=== PATIENT | male | born 1970 | race African-American/Black ===

== ENCOUNTER 2020-05-04 15:40 | Emergency (ER) | payer OTHER ==
[~2020-05-04] VITALS: Ht 172.7 cm; Wt 70.3 kg
[2020-05-04 15:47] VITALS: BP 145/73
--- NOTE | 2020-05-04 16:14 | NUR ---
50 Y/O MALE BIB SELF C/O EPIGASTRIC PAIN X2 DAYS, PATIENT DESCRIBES PAIN BURNING AND PRESSURE 7/10, NON RADIATING. DENIES ANY N/V/D, FEVER. AMBULATORY WITH STEADY GAIT. GCS 15. PATIENT STATES PAIN HAS BEEN GOING ON SINCE 2019 INTERMITTENTLY. WAS REFFERED TO ER BY URGENT CARE FOR ABNORMAL EKG PMH: DIABETES NKDA
[2020-05-04] MEDS ORDERED: LIDOCAINE VISCOUS 2% 20 ML UDC ONE (16:15)
[2020-05-04] MEDS ORDERED: ASPIRIN 325 MG TAB PO ONE (16:15)
[2020-05-04] MEDS ORDERED: ALUMINUM HYD/MAG/SIMETHICONE 30 ML UDC ONE (16:15)
[2020-05-04] MEDS ORDERED: DICYCLOMINE HCL LIQUID 20 MG, ALUMINUM HYD/MAG/SIMETHICONE 30 ML, LIDOCAINE VISCOUS 2% ... PO ONE ×3 (16:15)
[2020-05-04] MEDS ORDERED: DICYCLOMINE HCL LIQUID 10 MG/5 ML UDC ONE (16:16)
[2020-05-04 16:31] LABS: BASOPHILS % (AUTO) 0.6 % (0.0-2.0); EOSINOPHILS # (AUTO) 0.1 K/uL (0-0.4); EOSINOPHILS % (AUTO) 1.6 % (0.0-4.0); HEMATOCRIT 41.9 % (36-52); LYMPHOCYTES % (AUTO) 37.1 % (20.5-51.1); MEAN CORPUSCULAR HEMOGLOBIN 29 pg (27-31); MEAN CORPUSCULAR HGB CONC 34 g/dL (33-37); MEAN CORPUSCULAR VOLUME 86.1 fL (80-94); MONOCYTES # (AUTO) 0.6 K/uL (0.8-1.0); MONOCYTES % (AUTO) 7.1 % (1.7-9.3); NEUTROPHILS # (AUTO) 4.3 K/uL (1.8-7.7); NEUTROPHILS % (AUTO) 53.6 % (42.2-75.2); PLATELET COUNT (AUTO) 199 K/uL (140-450); RED BLOOD CELL COUNT(AUTO) 4.86 MIL/uL (4.20-6.10); RED CELL DISTRIBUTION WIDTH 13.6 % (11.6-13.7)
[2020-05-04 16:49] LABS: CARBON DIOXIDE 26.2 mmol/L (21-32); CREATININE 1.1 mg/dL (0.6-1.3); POTASSIUM 4.2 mmol/L (3.5-5.1); TOTAL BILIRUBIN 0.2 mg/dL (0.0-1.0)
--- NOTE | 2020-05-04 17:26 | NUR ---
PATIENT STATES THAT PAIN IS STILL PRESENT AT THIS TIME. VSS.
[2020-05-04] MEDS ORDERED: fentaNYL citrate 0.05 MG/ML VIAL IM ONE (17:35)
--- NOTE | 2020-05-04 18:14 | NUR ---
PT BACK FROM CT SCAN
[2020-05-04] MEDS ORDERED: DOCU-299 PO (19:18)
[2020-05-04] MEDS ORDERED: BEN10 PO (19:18)
--- NOTE | 2020-05-04 19:20 | NUR ---
REPORT RECEIVED FROM MALLY SANCHEZ FOR CONTINUITY OF CARE
[2020-05-04 19:39] VITALS: BP 140/71
--- NOTE | 2020-05-04 19:39 | NUR ---
Patient discharged with v/s stable. Written and verbal after care instructions given and explained. Patient alert, oriented and verbalized understanding of instructions. Ambulatory with steady gait. All questions addressed prior to discharge. ID band removed. Patient advised to follow up with PMD. Rx of BENTYL AND COLACE given. Patient educated on indication of medication including possible reaction and side effects. Opportunity to ask questions provided and answered.
== END 2020-05-04 19:39 | disposition home or self-care (01) ==
LOC: MED 15:40
DX: R10.10 Upper abdominal pain, unspecified (principal); E11.9 Type 2 diabetes mellitus without complications; Z79.899 Other long term (current) drug therapy
CPT/HCPCS: 36415; 71045; 74176; 80053; 83690; 84484; 85025; 93005; 96372; 99285; J3010

== ENCOUNTER 2021-12-28 13:47 | Emergency (ER) | payer OTHER ==
[~2021-12-28] VITALS: Ht 165.1 cm; Wt 65.8 kg
[~2021-12-28 13:47] MED LIST: BEN10 PO; DOCU-299 PO
[2021-12-28 13:52] VITALS: BP 149/95
[2021-12-28] MEDS ORDERED: BENZ-300 PO (15:03)
[2021-12-28 15:37] VITALS: BP 124/70
--- NOTE | 2021-12-28 15:38 | NUR ---
Patient discharged with v/s stable. Written and verbal after care instructions given and explained. Patient verbalized understanding. Ambulatory with steady gait. All questions addressed prior to discharge. Advised to follow up with PMD.
== END 2021-12-28 15:38 | disposition home or self-care (01) ==
LOC: MED 13:47
DX: J02.9 Acute pharyngitis, unspecified (principal); R05.9 Cough, unspecified; R03.0 Elevated blood-pressure reading, without diagnosis of hypertension; E11.9 Type 2 diabetes mellitus without complications; Z79.899 Other long term (current) drug therapy
CPT/HCPCS: 99282; 99283